=== PATIENT | female | born 1990 | race Two or more races ===

== ENCOUNTER 2021-03-31 09:39 | Observation (INO) | payer OTHER ==
[~2021-03-31] VITALS: Ht 157.5 cm; Wt 93.8 kg
[2021-03-31 10:18] LABS: MICROSCOPIC INDICATED
--- NOTE | 2021-03-31 10:27 | NUR ---
database marketing specialist: pt from lobby to room 19
[2021-03-31 11:00] LABS: BASOPHILS % (AUTO) 0 % (0-1); EOSINOPHILS % (AUTO) 1 % (1-7); LYMPHOCYTES % (AUTO) 20 % (22-44); MEAN CORPUSCULAR HEMOGLOBIN 29.9 pg (27.0-34.8); MEAN CORPUSCULAR HGB CONC 33.6 g/dL (32.4-35.8); MEAN PLATELET VOLUME 9.7 fL (7.4-10.4); MONOCYTES % (AUTO) 6 % (2-9); NEUTROPHILS % (AUTO) 74 % (42-75); PLATELET COUNT 336 x10^3/uL (130-400); RED BLOOD COUNT 4.53 x10^6/uL (3.82-5.3); RED CELL DISTRIBUTION WIDTH 13.2 % (9.6-15.2)
[2021-03-31 11:01] LABS: MD NO
[2021-03-31 11:02] LABS: ALBUMIN 4.1 g/dL (3.4-5.0); ANION GAP 4 mmol/L (5-15); CALCIUM 9.1 mg/dL (8.5-10.1); CHLORIDE 105 mmol/L (98-107)
--- NOTE | 2021-03-31 11:06 | NUR ---
PT C/O RUQ ABD PAIN X1 WEEK. PT STATES WORSE AFTER EATING, DENIES N/V/D. PT CONNECTED TO MONITORING. PT PROVIDED URINE SAMPLE PRIOR TO BEING ROOMED, LABS ALREADY DRAWN. AWAITING US. WARM BLANKET PROVIDED.
[2021-03-31 11:09] LABS: ALANINE AMINOTRANSFERASE 25 U/L (12-78); ALKALINE PHOSPHATASE 98 U/L (45-117); BILIRUBIN,TOTAL 0.5 mg/dL (0.2-1.0); CREATININE 0.75 mg/dL (0.55-1.02); TOTAL PROTEIN 8.5 g/dL (6.4-8.2)
--- NOTE | 2021-03-31 12:14 | NUR ---
PIV PLACED. PT GOING TO CT
[2021-03-31] MEDS ORDERED: OMNIPAQUE 350 MG/ML, 100ML BOTTLE ONE (12:21)
--- NOTE | 2021-03-31 12:47 | NUR ---
PT TO BE ADMIN FOR APPY. ERMD AT BEDSIDE TO UPDATE PT ON POC.
--- NOTE | 2021-03-31 12:49 | NUR ---
MED REQUESTED FROM PHARMACY.
--- NOTE | 2021-03-31 12:52 | NUR ---
dr carpenter spoke with dr schneider
[2021-03-31] MEDS ORDERED: SODIUM CHLORIDE FLUSH 10ML SYR IVF PRN (13:00)
[2021-03-31] MEDS ORDERED: CEFOTETAN PMX 1GM/50ML 50 ML IVPB ONE (13:00)
[2021-03-31] MEDS ORDERED: SODIUM CHLORIDE 0.9% 1,000 ML IV ONE (13:00)
--- NOTE | 2021-03-31 13:22 | NUR ---
IV ABX AND IVF STARTED PER MAR. ERMD ALREADY COLLECTED RAPID COVID SWAB. PT INSTRUCTED TO REMOVE ALL CLOTHING.
[2021-03-31] MEDS ORDERED: BUPIVACAINE/PF 0.25% ONE (13:23)
--- NOTE | 2021-03-31 13:39 | NUR ---
REPORT GIVEN TO EMPLOYEE DEVELOPMENT MANAGER. PT AMBULATED TO RESTROOM WITH STEADY GAIT.
--- NOTE | 2021-03-31 14:25 | NUR ---
PT TRANSFERRED TO OR IN STABLE CONDITION.
[2021-03-31] MEDS ORDERED: FENTANYL PF 100 MCG/2ML ONE ×2 (14:40→15:42)
[2021-03-31] MEDS ORDERED: MIDAZOLAM 1 MG/ML, 2ML ONE (14:40)
[2021-03-31] MEDS ORDERED: LIDOCAINE 1%, 20ML ONE (15:01)
[2021-03-31] MEDS ORDERED: KETOROLAC 30 MG/1 ML ONE (15:01)
[2021-03-31] MEDS ORDERED: BUPIVACAINE/PF 0.25% IM ONE (15:26)
[2021-03-31] MEDS ORDERED: SUGAMMADEX 200 MG/2 ML IVPush ONE ×2 (15:29)
[2021-03-31] MEDS ORDERED: MEPERIDINE/PF 25MG/0.5ML IVPush PRN (15:30)
[2021-03-31] MEDS ORDERED: PROMETHAZINE 25 MG/ML, 1ML IVPush PRN (15:30)
[2021-03-31] MEDS ORDERED: ONDANSETRON 2MG/ML, 2ML ONE ×2 (15:30→18:04)
[2021-03-31] MEDS ORDERED: DEXAMETHASONE 4 MG/ML, 1ML ONE (15:30)
[2021-03-31] MEDS ORDERED: LABETALOL 5MG/ML, 20ML IV PRN (15:30)
[2021-03-31] MEDS ORDERED: HYDROmorphone 1 MG/ML, 1ML INJ IVPush PRN (15:30)
[2021-03-31] MEDS ORDERED: ROCURONIUM 10MG/ML,5ML ONE (15:30)
[2021-03-31] MEDS ORDERED: OXYcodone 5 MG/5 ML ORAL.SOL UDC PO PRN (15:30)
[2021-03-31] MEDS ORDERED: PROPOFOL 10 MG/ML, 20ML ONE (15:30)
[2021-03-31] MEDS ORDERED: LORazepam 2 MG/ML, 1ML IVPush PRN (15:30)
[2021-03-31] MEDS ORDERED: ACETAMINOPHEN 325 MG TABLET PO PRN (15:30)
[2021-03-31] MEDS ORDERED: OXYcodone 5 MG/5 ML ORAL.SOL UDC ONE (15:42)
[2021-03-31] MEDS ORDERED: ACETAMINOPHEN 650 MG/20.3 ML UDC ONE (15:43)
[2021-03-31] MEDS: FENTANYL PF 100 MCG/2ML IV PRN ×2 (15:47→15:59)
[2021-03-31] MEDS ORDERED: HYDR-2214 PO (17:05)
[2021-03-31] MEDS: ONDANSETRON 2MG/ML, 2ML IVPush PRN ×2 (18:11→18:18)
[2021-03-31] MEDS: LACTATED RINGERS 1,000 ML IV SCH (18:19)
[2021-03-31] MEDS ORDERED: HYDROcodone/APAP 5/325 TABLET PO PRN (18:30)
[2021-03-31] MEDS ORDERED: MORPHINE SULFATE 4 MG/ML, 1ML IVPush PRN (18:30)
[2021-03-31 18:52] VITALS: BP 138/90
[2021-03-31 23:26] VITALS: BP 106/69
[2021-04-01] MEDS: LACTATED RINGERS 1,000 ML IV SCH (02:51)
[2021-04-01 03:37] VITALS: BP 94/60
[2021-04-01 07:45] VITALS: BP 110/75
== END 2021-04-01 09:45 | disposition home or self-care (01) ==
LOC: ED 11:02 → EDIP 12:56 → INTOOBSV 12:56 → 4NE 16:30 → DCLOUNGE 04-01 09:35 → UNDODISIN 04-01 09:45
PROVIDERS: ADMIT Surgery; ATTEND Surgery
DX: K35.80 Unspecified acute appendicitis (principal); Z20.822 Contact with and (suspected) exposure to COVID-19; E03.9 Hypothyroidism, unspecified; E66.9 Obesity, unspecified; F17.200 Nicotine dependence, unspecified, uncomplicated; Z79.899 Other long term (current) drug therapy
CPT/HCPCS: 36415; 44970; 74177; 76700; 80053; 81001; 83690; 84703; 85025; 87086; 87635; 88304; 96361; 96365; 96375; 99285; J1100; J1885; J2250; J2270; J2405; J2704; J3010; J3490; J7030; J7120; Q9967; 96374; G0378